=== PATIENT | male | born 1990 | race Caucasian/White ===

== ENCOUNTER 2018-12-22 20:01 | Emergency (ER) | payer SELFPAY ==
[~2018-12-22] VITALS: Ht 167.6 cm; Wt 77.1 kg
[2018-12-22 20:06] VITALS: Ht 167.6 cm; Wt 77.1 kg
[2018-12-23 02:48] VITALS: BP 123/64
== END 2018-12-23 02:48 | disposition home or self-care (01) ==
LOC: ED 20:01
DX: F10.129 Alcohol abuse with intoxication, unspecified (principal)
CPT/HCPCS: J3411; J3475; J3490; J7030